=== PATIENT | male | born 1950 | race Caucasian/White ===

== ENCOUNTER 2017-01-07 09:24 | Day surgery (SDC) | payer BC ==
[2017-01-07] MEDS ORDERED: NS 500 ML IV 500 ML IV ONE (10:26)
[2017-01-07] MEDS ORDERED: TETRACAINE 0.5% OPHTH 1 DOSE AFFEYE ONE ×2 (10:30→13:10)
[2017-01-07] MEDS ORDERED: VIGAMOX 0.5% OPHTH 1 DOSE AFFEYE ONE ×4 (10:35→13:54)
[2017-01-07] MEDS ORDERED: PROLENSA OPHTH 1 DOSE AFFEYE ONE (10:46)
[2017-01-07] MEDS ORDERED: ALPHAGAN-P OPHTH 1 DOSE AFFEYE ONE (10:47)
[2017-01-07] MEDS ORDERED: CYCLOGYL 1% OPHTH 1 DOSE OP ONE ×3 (10:48→10:50)
[2017-01-07] MEDS ORDERED: AK-DILATE 2.5% OPHTH 1 DOSE OP ONE ×3 (10:48→10:50)
[2017-01-07] MEDS ORDERED: MYDRIACIL OPHTH 1 DOSE AFFEYE ONE ×3 (10:48→10:50)
[2017-01-07] MEDS ORDERED: VERSED IVP ONE (13:28)
[2017-01-07] MEDS ORDERED: ALCAINE or OPHTHETIC 1 DOSE AFFEYE ONE (13:29)
[2017-01-07] MEDS ORDERED: AK-DILATE 10% OPHTH 1 DOSE AFFEYE ONE (13:33)
[2017-01-07] MEDS ORDERED: BETADINE OPHTH SOLN 5% EACHEYE ONE (13:45)
[2017-01-07] MEDS ORDERED: ADRENALINE CHL INJ IJ ONE ×2 (13:54→14:02)
[2017-01-07] MEDS ORDERED: DUOVISC IO ONE ×2 (13:54→14:02)
[2017-01-07] MEDS ORDERED: XYLOCAINE-MPF 1% IJ ONE ×2 (13:54→14:02)
[2017-01-07] MEDS ORDERED: BSS OPHTH (PLAIN) 500 ML with VANCOMYCIN HCL 500 MG VIAL 25 MG, ADRENALINE CHL INJ 1 MG IR ONE ×6 (13:55)
[2017-01-07 14:51] VITALS: BP 140/80
== END 2017-01-07 14:40 | disposition home or self-care (01) ==
LOC: SURG1 09:24
PROVIDERS: ATTEND Ophthalmology
PROC: 08DK3ZZ Extraction of Left Lens, Percutaneous Approach (ICD-10-PCS; principal; 2017-01-07 14:45)
PROC: 08RK3JZ Replacement of Left Lens with Synthetic Substitute, Percutaneous Approach (ICD-10-PCS; principal; 2017-01-07 14:45)
DX: H25.12 Age-related nuclear cataract, left eye (principal); H25.012 Cortical age-related cataract, left eye; H52.222 Regular astigmatism, left eye
CPT/HCPCS: A4217; J0170; J2250; J3370